=== PATIENT | female | born 1975 | race Caucasian/White ===

== ENCOUNTER → 2016-10-08 | Outpatient (CLI) | payer OTHER ==
--- NOTE | 2016-10-09 16:48 | MR ---
MRI of the brain with and without contrast HISTORY: MS TECHNIQUE: T1-weighted sagittal, T2, FLAIR, and diffusion axial, postcontrast T1 axial an d coronal views of the brain are submitted. CONTRAST: 15 mL MultiHance COMPARISON: 09/26/2015 FINDINGS: There is no evidence of acute ischemia. The ventricles, basal cisterns, and sulci overlying the co nvexities are consistent with the patient's age. There is no mass effect or enhancing mass. Craniocervical junction is maintained. Sella turcica has a normal appearance. Changes of chronic sinu sitis noted. Small pineal gland cyst incidentally noted. WHITE MATTER: There are approximately 8 areas of focal abnormal signal scattered throughout the white matter all me asuring less than 5 mm. No enhancing lesions. No lesions perpendicular to the ventricular system. No callosal lesions. No posterior fossa lesions. Interval change: Findings are stable in size, morphology and number from previous exam. IMPRESSION: 1. No acute intracranial process. 2. Stable nonspecific white matter changes which are unchanged in size, morphology or number from the previous exam. 3. Moderate chronic sinusitis. EXAMINATION TYPE: MR brain wo/w cspine wo DATE OF EXAM: 10/08/2016 6:55 PM COMPARISON: 07/21/2014 HISTORY: MS, CERVICALGIA T1 sagittal and coronal, T2 sagittal, and gradient echo axial views of the cervical spine are submitt ed. The cranial cervical junction is preserved. There is limited assessment spinal cord due to motion art ifact. At C2-3 there is no disc herniation or canal stenosis. No foraminal encroachment. At C3-4 there is there is right sided uncovertebral joint hypertrophy and disc bulging. No disc herni ation. Mild right-sided foraminal encroachment but no canal stenosis. C4-C5: No evidence for degenerative disc disease. No disc bulge/herniation or protrusion. No Canal st enosis. Foramina are patent bilaterally. C5-C6: No evidence for degenerative disc disease. No disc bulge/herniation or protrusion. No Canal st enosis. Foramina are patent bilaterally. C6-C7: No evidence for degenerative disc disease. No disc bulge/herniation or protrusion. No Canal st enosis. Foramina are patent bilaterally. C7-T1: C7 hemangioma. No evidence for degenerative disc disease. No disc bulge/herniation or protrusi on. No Canal stenosis. Foramina are patent bilaterally. IMPRESSION: 1. Stable right paracentral disc bulging and uncovertebral joint hypertrophy C3-C4. Mild narrowing o f the neural foraminal stable. 2. Although assessment spinal cord is limited due to motion artifact suggestion of an area of abnorma l signal within the spinal cord to C5-C6 level is not excluded. Correlate clinically given limitation of the exam.
== END | disposition home or self-care (01) ==
LOC: RADMRIMAIN 17:44
PROVIDERS: ATTEND Nurse Practitioner Acute Care
DX: M50.21 Other cervical disc displacement, high cervical region (principal); M99.71 Connective tissue and disc stenosis of intervertebral foramina of cervical region; R90.82 White matter disease, unspecified; G35 Multiple sclerosis
CPT/HCPCS: 70553; 72141; A9577

== ENCOUNTER → 2017-05-05 | Outpatient (CLI) | payer OTHER ==
--- NOTE | 2017-05-05 12:25 | XR ---
EXAMINATION TYPE: XR foot limited bilateral DATE OF EXAM: 05/05/2017 COMPARISON: NONE HISTORY: Bilateral foot pain TECHNIQUE: 2 views bilateral feet each FINDINGS: Right foot: No acute fractures are evident. Joint spaces are preserved. Plantar and Achilles tendon c alcaneal heel spurs are present. Left foot: No acute fractures are evident. Joint spaces are preserved. Achilles tendon calcaneal heel spur is present. IMPRESSION: 1. Calcaneal heel spurs. 2. No acute osseous abnormality.
== END | disposition home or self-care (01) ==
LOC: RADXRMAIN 11:32
PROVIDERS: ATTEND Podiatrist Foot & Ankle Surgery
DX: M77.32 Calcaneal spur, left foot (principal); M77.31 Calcaneal spur, right foot

== ENCOUNTER → 2017-11-17 | Outpatient (CLI) | payer OTHER ==
--- NOTE | 2017-11-17 20:04 | MR ---
EXAMINATION TYPE: MR brain/cspine wo/w DATE OF EXAM: 11/17/2017 COMPARISON: 10/08/2016 HISTORY: MS, Pain and numbness TECHNIQUE: Multiplanar, multisequence images of the brain and brainstem is performed without and with IV contras t, utilizing 10 mL intravenous Gadavist . FINDINGS: Diffusion weighted images demonstrate no evidence of a recent infarct or other diffusion ab normality. The ventricular system and cisternal spaces are normal in size and appearance. The bra in volume is age appropriate. Midline structures demonstrate normal morphology. The craniocervical junction appears within normal limits. Post contrast images demonstrate no abnormal enhancement. Changes of chronic sinusitis are noted and there is a stable appearing small pineal gland cyst. WHITE MATTER: There are approximately 8 areas of focal abnormal signal scattered throughout the white matter all me asuring less than 5 mm. No enhancing lesions. No lesions perpendicular to the ventricular system. No callosal lesions. No posterior fossa lesions. Interval change: Findings are stable in size, morphology and number from previous exam. IMPRESSION: 1. No acute intracranial process. 2. Stable nonspecific white matter changes which are unchanged in size, morphology or number from the previous exam. 3. Moderate chronic sinusitis. EXAMINATION TYPE: MR brain/cspine wo/w DATE OF EXAM: 11/17/2017 COMPARISON: 10/08/2016 HISTORY: MS, Pain and numbness TECHNIQUE: T1 sagittal and coronal, T2 sagittal, and gradient echo axial, and postcontrast T1 axial a nd sagittal views of the cervical spine are submitted. CONTRAST: 10 mL Gadavist FINDINGS: The cranial cervical junction is preserved. There is no abnormal signal seen within the sp inal cord or paraspinal soft tissues. Shotty adenopathy within the soft tissues of the neck. Benign-a ppearing cyst within the posterior nasopharynx At C2-3 there is no disc herniation or canal stenosis. No foraminal encroachment. At C3-4 there is right sided uncovertebral joint hypertrophy and disc bulging. No disc herniation. Mi ld right-sided foraminal encroachment but no canal stenosis. At C4-5 there is No evidence for degenerative disc disease. No disc bulge/herniation or protrusion. N o Canal stenosis. Foramina are patent bilaterally At C5-6 there is No evidence for degenerative disc disease. No disc bulge/herniation or protrusion. N o Canal stenosis. Foramina are patent bilaterally At C6-7 there is No evidence for degenerative disc disease. No disc bulge/herniation or protrusion. N o Canal stenosis. Foramina are patent bilaterally At C7-T1 there is No evidence for degenerative disc disease. No disc bulge/herniation or protrusion. No Canal stenosis. Foramina are patent bilaterally. Vertebral body hemangioma noted. IMPRESSION: 1. No abnormal signal in the visualized spinal cord identified. As noted on the previous report abno rmal signal noted in the previous exam at the C5-C6 level likely is artifactual. 2. Stable right paracentral disc bulging and uncovertebral joint hypertrophy C3-C4. Mild right neural foraminal encroachment.
--- NOTE | 2017-11-17 21:25 | MR ---
EXAMINATION TYPE: MR lumbar spine wo con DATE OF EXAM: 11/17/2017 COMPARISON: 02/09/2020 HISTORY: Pain and numbness TECHNIQUE: T1 and T2 axial and sagittal images of the lumbar spine are submitted. FINDINGS: There is no abnormal signal seen within the visualized spinal cord or paraspinal soft tissu es. At L1-2 there is no evidence of degenerative disc disease, disc herniation, canal stenosis, or forami nal encroachment. At L2-3 there is no evidence of degenerative disc disease, disc herniation, canal stenosis, or forami nal encroachment. At L3-4 there is no evidence of degenerative disc disease, disc herniation, canal stenosis, or forami nal encroachment. Hypertrophic change of the facets. At L4-5 there is hypertrophic change of the facets. No canal stenosis or foraminal encroachment. Mild broad-based disc bulging with minimal effacement of thecal sac. At L5-S1 there is no evidence of degenerative disc disease, disc herniation, canal stenosis, or desi inal encroachment. There is moderate facet arthropathy. IMPRESSION: 1. Mild broad-based disc bulging L4-L5 with minimal effacement of thecal sac but no canal stenosis or foraminal encroachment.
== END | disposition home or self-care (01) ==
LOC: RADMRIMAIN 17:41
PROVIDERS: ATTEND Nurse Practitioner Acute Care
DX: M51.26 Other intervertebral disc displacement, lumbar region (principal); M50.21 Other cervical disc displacement, high cervical region; M53.82 Other specified dorsopathies, cervical region; R90.82 White matter disease, unspecified; G35 Multiple sclerosis; Z88.2 Allergy status to sulfonamides
CPT/HCPCS: 70553; 72148; 72156; A9581